=== PATIENT | male | born 1980 | race Two or more races ===

== ENCOUNTER 2017-07-15 15:45 | Emergency (ER) | payer OTHER ==
--- NOTE | ~2017-07-15 | ER ---
PATIENT'S NAME: RAFAEL MIRELES [facility] AGE: 36 Y [address] ROOM: [place] [address] LOCATION: [facility] ADMIT DATE: 07/15/2017 ER/Outpatient Report DISCHARGE DATE: 07/15/2017 FAMILY PHYSICIAN: PHYSICIAN, NO ATTENDING PHYSICIAN: Wili Cho TIME OF EVALUATION: 1610 hours. HISTORY OF PRESENT ILLNESS: The patient is a 36-year-old male, who works for [employer]. The patient was using a long skinny knife when he accidentally stabbed himself in the left wrist. The patient presents with a 2 cm laceration on lateral dorsal side on the radial side. The patient complains pain, but also the inability to extend his thumb. IMMUNIZATION STATUS: Unknown. ALLERGIES: NONE. HOME MEDICATIONS: None. PAST MEDICAL HISTORY: The patient has no chronic diseases. SURGERIES: None. SOCIAL HISTORY: Nonsmoker. Denies alcohol use. Worked for [employer] for several years. REVIEW OF SYSTEMS: GENERAL: Health good. SKIN: Includes the laceration to his wrist, dorsal side radially. NEUROVASCULAR: There was some bleeding after the laceration occurred, however, stopped while he got to the emergency room. Does complain of some mild numbness to his proximal thumb. OBJECTIVE FINDINGS: VITAL SIGNS: Reviewed. GENERAL: The patient is well nourished, cooperative. EXTREMITIES: Exam of the left wrist shows a 2 cm laceration, dorsal radial PATIENT'S NAME: RAFAEL MIRELES [facility] AGE: 36 Y [address] ROOM: [place] [address] LOCATION: [facility] ADMIT DATE: 07/15/2017 ER/Outpatient Report DISCHARGE DATE: 07/15/2017 FAMILY PHYSICIAN: PHYSICIAN, NO ATTENDING PHYSICIAN: Wili Cho side. The patient's thumb is somewhat flexed especially the distal tip was flexed forward. The patient was unable to extend the distal joint. ASSESSMENT: A 2-cm laceration, left wrist with probable extensor tendon involvement of the left thumb. PLAN: I did talk to Dr. Abdullahi. His recommendation was to wash it out good, antibiotics, and then see Dr. Herrmann tomorrow at 8:30. The laceration was anesthetized with 1% Xylocaine with epinephrine. It was then irrigated thoroughly under pressure. Two sutures were placed of 4-0 Ethilon. Sterile dressing. Splint applied. The patient was given a gram of Rocephin IM and started on Keflex 500 q.i.d. He was also given some [place] for pain 1 or 2 every 4 to 6 hours if needed. The patient will follow up with Dr. Bowling in the morning at [facility]. Tetanus also given here in the emergency room. DIOMEDES ROOT FOR MD JACQUELINE SAMANO/sadiq /[id number] d: t: 07/15/17 2235, OUTPATIENT REPORT
== END 2017-07-15 16:31 | disposition disaster alternative care site (69) ==
LOC: GACC 15:45
PROC: 0HQGXZZ Repair Left Hand Skin, External Approach (ICD-10-PCS; principal; 2017-07-15)
DX: S61.512A Laceration without foreign body of left wrist, initial encounter (principal); Z23 Encounter for immunization; W26.0XXA Contact with knife, initial encounter
CPT/HCPCS: J0696